=== PATIENT | female | born 1955 | race Caucasian/White ===

== ENCOUNTER 2016-04-22 17:52 | Emergency (ER) | payer BC | END 2016-04-22 21:21 | disposition home or self-care (01) | DX: R41.0 Disorientation, unspecified (principal); R51 Headache; R07.2 Precordial pain; I10 Essential (primary) hypertension ==

== ENCOUNTER 2016-07-18 14:18 | Outpatient (CLI) | payer BC | END 2016-07-18 14:19 | disposition critical access hospital (66) | DX: R41.82 Altered mental status, unspecified (principal) | CPT/HCPCS: A0425; A0429 ==

== ENCOUNTER 2016-07-18 14:43 | Emergency (ER) | payer BC ==
[2016-07-18 14:55] VITALS: BP 137/75
--- NOTE | 2016-07-18 15:50 | ED Physician Documentation ---
History of Present Illness - Stated complaint Stated Complaint: ALOC,ETOH - Chief complaint Chief Complaint: General - History obtained from History obtained from: Patient, Police - History of Present Illness Timing: Today Pain level max: 0 Pain level now: 0 Improved by: nothing Worsened by: nothing - Additonal information Additional information: Patient is a 60-year-old female who was intoxicated today and attempting to get into her car. Stop by the police and brought here because no one was at home to stay with her. She has no medical complaints. Denies any injuries. Patient states that she drinks alcohol approximately once a month. States normally not this heavily. Review of Systems Ten Systems: 10 systems reviewed and negative Constitutional: denies: Fever, Chills GI: denies: Vomiting Skin: denies: Rash Musculoskeletal: denies: Neck pain, Back pain Neurologic: denies: Focal weakness, Numbness, Confused, Altered mental status, Headache, Head injury, [place] PAST MEDICAL HISTORY - Past Medical History Past Medical History: Yes Cardiovascular: Hypertension Neuro: None - Present Medications Home Medications: Ambulatory Orders Medication Instructions Recorded Confirmed Chlorthalidone 04/22/16 Lisinopril 04/22/16 Metoprolol Tartrate 04/22/16 amLODIPine [Norvasc] 40 04/22/16 - Allergies Allergies/Adverse Reactions: Allergies Allergy/AdvReac Type Severity Reaction Status Date / Time Penicillins Allergy Rash Verified 04/22/16 18:10 Sulfa (Sulfonamide Allergy Rash Verified 04/22/16 18:10 Antibiotics) - Social History Does the pt smoke?: No Smoking Status: Never smoker - Immunizations Immunizations are current?: Yes PD ED PE NORMAL - Vitals Vital signs reviewed: Yes - General General: Alert and oriented X 3, No acute distress, Well developed/nourished - HEENT HEENT: PERRL, Moist mucous membranes - Neck Neck: Supple, no meningeal sign - Cardiac Cardiac: RRR, Strong equal pulses - Respiratory Respiratory: No respiratory distress, Clear bilaterally - Abdomen Abdomen: Soft, Non tender, Non distended - Derm Derm: Warm and dry - Neuro Neuro: Alert and oriented X 3 - Psych Psych: Normal mood, Normal affect Results - Vitals Vitals: Vital Signs - 24 hr 07/18/16 14:45 Temperature 37.1 C Heart Rate 114 H Respiratory 17 Rate Blood Pressure 137/75 H O2 Saturation 94 Oxygen O2 Source Room air PD MEDICAL DECISION MAKING - ED course Complexity details: considered differential, d/w patient ED course: Patient presents to the emergency department after being brought in by police for alcohol intoxication. She is ambulating without difficulty. Clear and coherent. No apparent injuries. She declines any interventions at this time. Her came to the emergency department is comfortable taking her home and monitoring her there. They will follow-up with her doctor for further evaluation. Patient and family counseled regarding signs and symptoms for which I believe and urgent re-evaluation would be necessary. Patient with good understanding of and agreement to plan and is comfortable going home at this time This document was made in part using voice recognition software. While efforts are made to proofread this document, sound alike and grammatical errors may occur. Departure - Departure Disposition: 01 Home, Self Care Clinical Impression: Alcohol intoxication Qualifiers: Complication of substance-induced condition: uncomplicated Qualified Code(s): F10.120 - Alcohol abuse with intoxication, uncomplicated Condition: Good Instructions: ED Alcohol Intoxication Follow-Up: your,doctor in 1 week [Other] Comments: Return if you worsen. Someone needs to stay with you today. Discharge Date/Time: 07/18/16 16:20
== END 2016-07-18 16:20 | disposition home or self-care (01) ==
LOC: EDUNIT# → ED 14:43
DX: F10.129 Alcohol abuse with intoxication, unspecified (principal); I10 Essential (primary) hypertension
CPT/HCPCS: 99283